=== PATIENT | male | born 1975 | race Caucasian/White ===

== ENCOUNTER → 2018-04-09 | Outpatient (CLI) | payer BC ==
--- NOTE | 2018-04-09 18:24 | US ---
EXAMINATION TYPE: US venous doppler duplex LE LT DATE OF EXAM: 04/09/2018 6:19 PM COMPARISON: NONE CLINICAL HISTORY: leg swelling pain R60.0. left leg swelling. SIDE PERFORMED: Left TECHNIQUE: The lower extremity deep venous system is examined utilizing real time linear array sonog gage with graded compression, doppler sonography and color-flow sonography. VESSELS IMAGED: External Iliac Vein (EIV) Common Femoral Vein Deep Femoral Vein Greater Saphenous Vein * Femoral Vein Popliteal Vein Small Saphenous Vein * Proximal Calf Veins (* superficial vessels) Left Leg: Negative for DVT No evidence of DVT left leg. IMPRESSION: No evidence of deep venous thrombosis in the left leg.
== END | disposition home or self-care (01) ==
LOC: RADUSMAIN 17:49
PROVIDERS: ATTEND Physician Assistant
DX: R60.0 Localized edema (principal); M79.606 Pain in leg, unspecified

== ENCOUNTER 2022-07-10 07:36 | Day surgery (SDC) | payer BC ==
[2022-07-08 15:29] VITALS: BMI 42.0
[~2022-07-10 07:36] MED LIST: HYDROmorphone 0.5 MG/0.5 ML SYRINGE IVP PRN; LACTATED RINGERS 1,000 ML IV SCH; ONDANSETRON 4 MG/2 ML VIAL IVP ONE
[2022-07-10 08:06] VITALS: TEMP 97.4
[2022-07-10] MEDS ORDERED: LACTATED RINGERS 1,000 ML IV ONE (08:13)
[2022-07-10] MEDS ORDERED: PROPOFOL 10 MG/ML 20 ML VIAL IV ONE (08:30)
--- NOTE | 2022-07-10 08:32 | P.GSHP ---
History of Present Illness H&P Date: 07/10/22 CHIEF COMPLAINT: Colon screen HISTORY OF PRESENT ILLNESS: The patient is a 46-year-old male who presents for colon screen. Lower endoscopy was offered for further evaluation and management. PAST MEDICAL HISTORY: Please see list. PAST SURGICAL HISTORY: Please see list. MEDICATIONS: Please see list. ALLERGIES: Please see list. SOCIAL HISTORY: No illicit drug use FAMILY HISTORY: No reports of Crohn disease or ulcerative colitis. REVIEW OF ORGAN SYSTEMS: CONSTITUTIONAL: No reports of fevers or chills. PHYSICAL EXAM: VITAL SIGNS: Stable GENERAL: Well-developed pleasant in no acute distress. HEENT: No scleral icterus. Extraocular movements grossly intact. Moist buccal mucosa. NECK: Supple without lymphadenopathy. CHEST: Unlabored respirations. Equal bilateral excursions. CARDIOVASCULAR: Regular rate and rhythm. Distal 2+ pulses. ABDOMEN: Soft, nontender, nondistended. MUSCULOSKELETAL: No clubbing, cyanosis, or edema. ASSESSMENT: 1. Colon screen. PLAN: 1. Recommend proceeding with a lower endoscopy Past Medical History Past Medical History: Hypertension Additional Past Medical History / Comment(s): BLOOD IN STOOL History of Any Multi-Drug Resistant Organisms: None Reported Past Surgical History: No Surgical Hx Reported Past Anesthesia/Blood Transfusion Reactions: Motion Sickness Smoking Status: Former smoker - Past Family History Mother Family Medical History: Cancer Medications and Allergies Home Medications Medication Instructions Recorded Confirmed Type Ergocalciferol [Vitamin D2 (1250 1,250 mcg PO HAMILTON 07/08/22 07/08/22 History Mcg = 33368 Iu)] Losartan [Cozaar] 50 mg PO BID 07/08/22 07/08/22 History Allergies Allergy/AdvReac Type Severity Reaction Status Date / Time Penicillins Allergy Unknown Verified 07/08/22 15:19 Childhood Surgical - Exam Vital Signs Temp Pulse Resp BP Pulse Ox 97.4 F L 72 18 142/82 99 07/10/22 08:05 07/10/22 08:05 07/10/22 08:05 07/10/22 08:05 07/10/22 08:05
--- NOTE | 2022-07-10 08:50 | P.PCN ---
Date of Procedure: 07/10/22 Description of Procedure: PREOPERATIVE DIAGNOSIS: Colonoscopy screening. POSTOPERATIVE DIAGNOSIS: Colonoscopy screening. Diverticulosis, sigmoid colon OPERATION: Colonoscopy to the cecum, ileocecal valve and appendiceal orifice. SURGEON: Maritza Whitt MD. ANESTHESIA: MAC. INDICATIONS: The patient is a 46-year-old male who presents for colonoscopy screening. Benefits and risks were described and informed consent was obtained. DESCRIPTION OF PROCEDURE: The patient had undergone Sutab prep. The patient had been brought into the operating room and laid in the left lateral decubitus position. After adequate intravenous sedation, the rectum was examined with 2% lidocaine jelly. No external hemorrhoids were encountered. The rectal tone was within normal limits. No lesions were palpated in the rectal vault. An Olympus colonoscope was advanced until the cecum, ileocecal valve and appendiceal orifice were clearly viewed. The prep was excellent. Sigmoid diverticulosis was encountered. No colonic polyps were found. No evidence of focal colitis was found. Retroflexion of the scope demonstrated grade 1 internal hemorrhoids without active bleeding or inflammation. The colon was desufflated. The patient had tolerated the procedure well. Withdrawal time was over 6 minutes. FINDINGS: Aronchick preparation quality scale 1 (1-5) Internal hemorrhoids, grade 1 No external prolapsed hemorrhoids. No arteriovenous malformations. No adenomatous polyps. No focal colitis. Sigmoid diverticulosis RECOMMENDATIONS: Lower endoscopy 2031 Plan - Discharge Summary Discharge Rx Participant: No New Discharge Prescriptions: Continue Ergocalciferol [Vitamin D2 (1250 Mcg = 25088 Iu)] 1,250 mcg PO HAMILTON Losartan [Cozaar] 50 mg PO BID Discharge Medication List Ergocalciferol [Vitamin D2 (1250 Mcg = 16252 Iu)] 1,250 mcg PO HAMILTON 07/08/22 [History] Losartan [Cozaar] 50 mg PO BID 07/08/22 [History] Follow up Appointment(s)/Referral(s): Maritza Whitt MD [STAFF PHYSICIAN] - As Needed Patient Instructions/Handouts: Diverticulosis Diet (GEN), Diverticulosis (DC), *Surgery [facility] - (Anesthesia) Endoscopy Discharge Instructions, Colonoscopy (DC) Activity/Diet/Wound Care/Special Instructions: Repeat colonoscopy in 2031 Discharge Disposition: HOME SELF-CARE
[2022-07-10 08:53] VITALS: RESP 16
[2022-07-10 09:05] VITALS: BP 119/83; PULSE 63
== END 2022-07-10 09:21 | disposition home or self-care (01) ==
LOC: ORWHC2ENDO 07:36
PROVIDERS: ATTEND Surgery Plastic and Reconstructive Surgery
DX: Z12.11 Encounter for screening for malignant neoplasm of colon (principal); K57.30 Diverticulosis of large intestine without perforation or abscess without bleeding; K64.0 First degree hemorrhoids; I10 Essential (primary) hypertension; T75.3XXA Motion sickness, initial encounter; Z79.811 Long term (current) use of aromatase inhibitors; Z87.891 Personal history of nicotine dependence; Z80.9 Family history of malignant neoplasm, unspecified; Z88.0 Allergy status to penicillin
CPT/HCPCS: 45378; J2704

== ENCOUNTER 2022-09-30 09:35 | Inpatient (IN) | payer BC ==
--- NOTE | 2022-09-30 10:12 | ED ---
Abdominal Pain HPI - General Chief Complaint: Abdominal Pain Stated Complaint: Abd pain Time Seen by Provider: 09/30/22 10:05 Source: patient, RN notes reviewed Limitations: no limitations - History of Present Illness Initial Comments: This is a 47 year old male who presents to the emergency department for progressive RLQ pain x2 days. The pain started in the center of his abdomen before moving to the right lower quadrant. He also reports associated nausea and vomiting. Denies any fevers or blood in his vomit or stool. Denies any modifying factor or history of similar symptoms in the past. He has not measured any fevers, but he has felt like he may have had one because he has been sweating a lot. Denies any sore throat, cough, dyspnea, chest pain, palpitations, diarrhea, back pain, or headaches. MD Complaint: abdominal pain Onset/Timin -: days(s) Location: RLQ - Related Data Home Medications Medication Instructions Recorded Confirmed Losartan [Cozaar] 50 mg PO BID 07/08/22 09/30/22 Allergies Allergy/AdvReac Type Severity Reaction Status Date / Time Penicillins Allergy Unknown Verified 09/30/22 11:45 Childhood Review of Systems ROS Statement: Those systems with pertinent positive or pertinent negative responses have been documented in the HPI. ROS Other: All systems not noted in ROS Statement are negative. Past Medical History Past Medical History: Hypertension Additional Past Medical History / Comment(s): BLOOD IN STOOL History of Any Multi-Drug Resistant Organisms: None Reported Past Surgical History: No Surgical Hx Reported Past Anesthesia/Blood Transfusion Reactions: Motion Sickness Past Psychological History: No Psychological Hx Reported Smoking Status: Former smoker Past Alcohol Use History: Rare Past Drug Use History: None Reported - Past Family History Mother Family Medical History: Cancer General Exam Limitations: no limitations General appearance: alert, in distress Head exam: Present: atraumatic, normocephalic, normal inspection Respiratory exam: Present: normal lung sounds bilaterally. Absent: respiratory distress, wheezes, rales, rhonchi, stridor Cardiovascular Exam: Present: regular rate, normal rhythm, normal heart sounds. Absent: systolic murmur, diastolic murmur, rubs, gallop, clicks GI/Abdominal exam: Present: soft, tenderness (RLQ), normal bowel sounds. Absent: distended Neurological exam: Present: alert, oriented X3, CN II-XII intact Psychiatric exam: Present: normal affect, normal mood Skin exam: Present: warm, dry, intact, normal color. Absent: rash Course Vital Signs 09/30/22 09:58 Temperature 98.4 F Pulse Rate 98 Respiratory 18 Rate Blood Pressure 172/103 O2 Sat by Pulse 98 Oximetry Medical Decision Making - Medical Decision Making This is a 47 year old male who presents to the emergency department for RLQ pain. Was pt. sent in by a medical professional or institution? @ -No Did you speak to anyone other than the patient for history? @ -His Did you review nursing and triage notes? @ -Agree, accurate with regards to the patient's symptoms. Were old charts reviewed? @ -No Differential Diagnosis? @ -Differential Abdominal Pain Men: Appendicitis, cholecystitis, diverticulosis, ischemic bowel, pancreatitis, hepatitis, UTI, gastroenteritis, AAA, incarcerated hernia, bowel obstruction, constipation, inflammatory bowel, hepatitis, peptic ulcer disease, splenic infarction, perforated viscus, testicular torsion, this is not meant to be an all-inclusive list CT interpreted by me (1pt min.)? @ -Computed tomography scan of the abdomen and pelvis reveals a dilated appendix with associated wall thickening. What testing was considered but not performed? (CT, X-rays, U/S, labs)? Why? @ -None What meds were considered but not given? Why? @ -None Did you discuss the management of the patient with other professionals? @ -Dr. Styles, general surgery for acute appendicitis. Surgical intervention planned. Did you reconcile home meds? @ -Yes Was smoking cessation discussed for >3mins.? @ -No Was critical care preformed (if so, how long)? @ -No Were there social determinants of health that impacted care today? How? (Homelessness, low income, unemployed, alcoholism, drug addiction, transportation, low edu. Level, literacy, decrease access to med. care, [facility], rehab)? @ -No Was there de-escalation of care discussed even if they declined? (Discuss DNR or withdrawal of care, Hospice)? @ -No What co-morbidities impacted this encounter? (DM, HTN, Smoking, COPD, CAD, Cancer, CVA, Hep., AIDS, mental health diagnosis, sleep apnea, morbid obesity)? @ -HTN Was patient admitted / discharged? @ -Patient was given a bolus of IV fluids, Zofran, Toradol, and morphine, which he states improved his symptoms. Lab work reveals leukocytosis and elevated la ctic acid. Computed tomography scan consistent with an acute appendicitis. Case discussed with Dr. Styles, general surgery, who will plan for surgical intervention. Patient started on maintenance fluids, IV Levaquin and Flagyl will blood cultures obtained prior. Dr. Mayorga consulted for medical management. Drug Therapy requiring intensive monitoring for toxicity (Heparin, Nitro, Insulin, Cardizem)? @ -None Were any procedures done? @ -None Diagnosis/symptom? @ -Appendicitis Acute, or Chronic, or Acute on Chronic? @ -Acute Uncomplicated (without systemic symptoms) or Complicated (systemic symptoms)? @ -Complicated Side effects of treatment? @ -No adverse effects to medication administered at this time. Side effects from surgical intervention are always a possibility, discussion of risks will be deferred to the surgical team. Exacerbation, Progression, or Severe Exacerbation] @ -Not applicable Poses a threat to life or bodily function? @ -Yes, the infection can become a life-threatening problem if it goes untreated. This is also impacting his ability to function in terms of the pain. This case was discussed in detail with the attending ED physician. Presentation, findings, and treatment plan discussed in detail as well. - Lab Data Result diagrams: 09/30/22 10:43 09/30/22 12:10 Lab Results 09/30/22 09/30/22 09/30/22 Range/Units 10:43 10:43 11:12 WBC 17.4 H (3.8-10.6) k/uL RBC 5.81 (4.30-5.90) m/uL Hgb 18.1 H (13.0-17.5) gm/dL Hct 53.3 H (39.0-53.0) % MCV 91.7 (80.0-100.0) fL MCH 31.2 (25.0-35.0) pg MCHC 34.0 (31.0-37.0) g/dL RDW 13.2 (11.5-15.5) % Plt Count 302 (150-450) k/uL MPV 9.2 Neutrophils % 89 % Lymphocytes % 7 % Monocytes % 3 % Eosinophils % 1 % Basophils % 0 % Neutrophils # 15.4 H (1.3-7.7) k/uL Lymphocytes # 1.2 (1.0-4.8) k/uL Monocytes # 0.5 (0-1.0) k/uL Eosinophils # 0.1 (0-0.7) k/uL Basophils # 0.0 (0-0.2) k/uL Sodium (137-145) mmol/L Potassium (3.5-5.1) mmol/L Chloride (98-107) mmol/L Carbon Dioxide (22-30) mmol/L Anion Gap mmol/L BUN (9-20) mg/dL Creatinine (0.66-1.25) mg/dL Est GFR (CKD-EPI)AfAm (>60 ml/min/1.73 sqM) Est GFR (CKD-EPI)NonAf (>60 ml/min/1.73 sqM) Glucose (74-99) mg/dL Lactic Ac Sepsis Rflx Y Plasma Lactic Acid Trevor 3.2 H* (0.7-2.0) mmol/L Calcium (8.4-10.2) mg/dL Total Bilirubin (0.2-1.3) mg/dL AST (17-59) U/L ALT (4-49) U/L Alkaline Phosphatase (38-126) U/L Total Protein (6.3-8.2) g/dL Albumin (3.5-5.0) g/dL Amylase (30-110) U/L Lipase (23-300) U/L 09/30/22 Range/Units 12:10 WBC (3.8-10.6) k/uL RBC (4.30-5.90) m/uL Hgb (13.0-17.5) gm/dL Hct (39.0-53.0) % MCV (80.0-100.0) fL MCH (25.0-35.0) pg MCHC (31.0-37.0) g/dL RDW (11.5-15.5) % Plt Count (150-450) k/uL MPV Neutrophils % % Lymphocytes % % Monocytes % % Eosinophils % % Basophils % % Neutrophils # (1.3-7.7) k/uL Lymphocytes # (1.0-4.8) k/uL Monocytes # (0-1.0) k/uL Eosinophils # (0-0.7) k/uL Basophils # (0-0.2) k/uL Sodium 138 (137-145) mmol/L Potassium 4.4 (3.5-5.1) mmol/L Chloride 101 (98-107) mmol/L Carbon Dioxide 25 (22-30) mmol/L Anion Gap 12 mmol/L BUN 20 (9-20) mg/dL Creatinine 1.11 (0.66-1.25) mg/dL Est GFR (CKD-EPI)AfAm >90 (>60 ml/min/1.73 sqM) Est GFR (CKD-EPI)NonAf 78 (>60 ml/min/1.73 sqM) Glucose 236 H (74-99) mg/dL Lactic Ac Sepsis Rflx Plasma Lactic Acid Trevor (0.7-2.0) mmol/L Calcium 9.5 (8.4-10.2) mg/dL Total Bilirubin 1.5 H (0.2-1.3) mg/dL AST 29 (17-59) U/L ALT 33 (4-49) U/L Alkaline Phosphatase 88 (38-126) U/L Total Protein 7.9 (6.3-8.2) g/dL Albumin 4.7 (3.5-5.0) g/dL Amylase 69 (30-110) U/L Lipase 206 (23-300) U/L - Radiology Data Radiology results: report reviewed, image reviewed Disposition Clinical Impression: Acute appendicitis Disposition: ADMITTED IP TO THIS HOSP
[2022-09-30 11:02] LABS: Basophils % (A) 0 %; Eosinophils # (A) 0.1 k/uL (0-0.7); Eosinophils % (A) 1 %; HCT 53.3 % (39.0-53.0); HGB 18.1 gm/dL (13.0-17.5); Lymphocytes # (A) 1.2 k/uL (1.0-4.8); Lymphocytes % (A) 7 %; MCH 31.2 pg (25.0-35.0); MCV 91.7 fL (80.0-100.0); Mean Platelet Volume 9.2; Monocytes # (A) 0.5 k/uL (0-1.0); Monocytes % (A) 3 %; Neutrophils # (A) 15.4 k/uL (1.3-7.7); Neutrophils % (A) 89 %; Platelet Count 302 k/uL (150-450); RBC 5.81 m/uL (4.30-5.90); RDW 13.2 % (11.5-15.5); WBC 17.4 k/uL (3.8-10.6)
[2022-09-30] MEDS ORDERED: ONDANSETRON 4 MG/2 ML VIAL IVP STA (11:02)
[2022-09-30] MEDS ORDERED: KETOROLAC 15 MG/ML 1 ML VIAL IVP STA (11:02)
[2022-09-30] MEDS ORDERED: MORPHINE SULFATE 2 MG/ML SYRINGE IVP STA (11:02)
[2022-09-30] MEDS ORDERED: SODIUM CHLORIDE 0.9% 1,000 ML IV STA (11:02)
[2022-09-30] MEDS ORDERED: LEVOFLOXACIN 750MG-D5W PMX 750 MG in DEXTROSE/WATER 1 150ML.BAG IVPB STA (12:06)
[2022-09-30] MEDS ORDERED: metroNIDAZOLE-NS PMX 500 MG in SALINE 1 100ML.BAG IVPB STA (12:06)
--- NOTE | 2022-09-30 12:08 | CT ---
EXAMINATION TYPE: CT abdomen pelvis w con DATE OF EXAM: 09/30/2022 COMPARISON: HISTORY: lower abd pain CT DLP: 2646.7 mGycm Automated exposure control for dose reduction was used. CONTRAST: CT scan of the abdomen pelvis is performed with IV Contrast, patient injected with 100 mL of Isovue 3 00. FINDINGS- LUNG BASES- 5 mm subpleural nodule left lower lobe. Paraseptal emphysema. LIVER/GB- No gross abnormality is appreciated. PANCREAS- No gross abnormality is seen. SPLEEN- No gross abnormality is seen. ADRENALS- No gross abnormality is seen. KIDNEYS/BLADDER- no hydronephrosis nephrolithiasis or renal mass. BOWEL- adnexa demonstrates periappendiceal inflammatory change with thickened wall. Appendix measure s 1.2 cm. Findings compatible with acute appendicitis. Suspect there may be a small appendicolith at the origin of the appendix. Changes of diverticulosis are seen. Low density seen in the epigastric region most likely is artifact ual LYMPH NODES- No greater than 1cm abdominal or pelvic lymph nodes are appreciated. OSSEOUS STRUCTURES- No significant abnormality is seen. OTHER- aorta of normal caliber. Trace amount of free fluid seen in the right lower quadrant and pelv is with no definable abscess. Incidental note made of a retroaortic left renal vein. IMPRESSION- 1. Acute appendicitis with no definite abscess.
[2022-09-30] MEDS ORDERED: NALOXONE 0.4 MG/ML 1 ML VIAL IV PRN (12:11)
[2022-09-30] MEDS ORDERED: ONDANSETRON 4 MG/2 ML VIAL IVP PRN (12:11)
[2022-09-30] MEDS ORDERED: ACETAMINOPHEN TAB 325 MG TAB PO PRN (12:13)
[2022-09-30 12:39] LABS: ALT 33 U/L (4-49); AST 29 U/L (17-59); African American GFR (CKD) >90 (>60 ml/min/1.73 sqM); Albumin 4.7 g/dL (3.5-5.0); Alkaline Phosphatase 88 U/L (38-126); Amylase 69 U/L (30-110); Anion Gap 12 mmol/L; Blood Urea Nitrogen 20 mg/dL (9-20); Calcium 9.5 mg/dL (8.4-10.2); Carbon Dioxide 25 mmol/L (22-30); Chloride 101 mmol/L (98-107); Glucose 236 mg/dL (74-99); Lipase 206 U/L (23-300); Non-African American GFR(CKD) 78 (>60 ml/min/1.73 sqM); Potassium 4.4 mmol/L (3.5-5.1); Sodium 138 mmol/L (137-145); Total Bilirubin 1.5 mg/dL (0.2-1.3); Total Protein 7.9 g/dL (6.3-8.2)
--- NOTE | 2022-09-30 14:00 | P.GSHP ---
History of Present Illness H&P Date: 09/30/22 CHIEF COMPLAINT: Abdominal pain HISTORY OF PRESENT ILLNESS: This is a 47-year-old male who presented with right lower quadrant abdominal pain 2 days. Patient reports that his pain started in the mid abdomen and has moved down to the right lower quadrant. He has been having nausea. Also experiencing chills and sweats. He has not had a bowel movement since Friday. Computed tomography scan had shown evidence of acute appendicitis. Denies any prior abdominal surgical history. BP was elevated on admission. PAST MEDICAL HISTORY: Hypertension PAST SURGICAL HISTORY: See below MEDICATIONS: See below ALLERGIES: See below SOCIAL HISTORY: No illicit drug use. REVIEW OF SYSTEMS: CONSTITUTIONAL: Denies fever or chills. HEENT: Denies blurred vision, vision changes, or eye pain. Denies hemoptysis CARDIOVASCULAR: Denies chest pain or pressure. RESPIRATORY: No shortness of breath. GASTROINTESTINAL: See HPI for pertinent findings HEMATOLOGIC: Denies bleeding disorders. GENITOURINARY: Denies any blood in urine or increased urinary frequency. SKIN: Denies pruitis. Denies rash. PHYSICAL EXAM: VITAL SIGNS: Reviewed GENERAL: Well-developed in no acute distress. HEENT: No sclera icterus. Extraocular movements grossly intact. Moist buccal mucosa. Head is atraumatic, normocephalic. No nasal drainage. ABDOMEN: Soft. Nondistended. Tenderness right lower quadrant NEUROLOGIC: Alert and oriented. Cranial nerves II through XII grossly intact. LABORATORY DATA: WBC is 17.4 Hgb 18.1 platelets 302 Sodium is 138 potassium 4.4 creatinine 1.11 Glucose 236 Lactic acid 3.2 repeat pending total bili 1.5 AST 29 ALT 33 alk phos 88 Lipase 206 IMAGING: Computed tomography scan abdomen and pelvis acute appendicitis with no definite abscess ASSESSMENT: 1. Acute appendicitis 2. Leukocytosis 3. Elevated lactic acid level PLAN: -Patient scheduled for laparoscopic appendectomy today -Keep patient nothing by mouth -Continue antibiotics -Continue IV fluids -Continue pain medication and antiemetics as needed Physician Advertising Consultant note has been reviewed by physician. Signing provider agrees with the documented findings, assessment, and plan of care. Past Medical History Past Medical History: Hypertension Additional Past Medical History / Comment(s): BLOOD IN STOOL History of Any Multi-Drug Resistant Organisms: None Reported Past Surgical History: No Surgical Hx Reported Past Anesthesia/Blood Transfusion Reactions: Motion Sickness Past Psychological History: No Psychological Hx Reported Smoking Status: Former smoker Past Alcohol Use History: Rare Past Drug Use History: None Reported - Past Family History Mother Family Medical History: Cancer Medications and Allergies Home Medications Medication Instructions Recorded Confirmed Type Losartan [Cozaar] 50 mg PO BID 07/08/22 09/30/22 History Allergies Allergy/AdvReac Type Severity Reaction Status Date / Time Penicillins Allergy Unknown Verified 09/30/22 11:45 Childhood Surgical - Exam Vital Signs Temp Pulse Resp BP Pulse Ox 98.4 F 98 18 172/103 98 09/30/22 09:58 09/30/22 09:58 09/30/22 09:58 09/30/22 09:58 09/30/22 09:58 Results - Labs 09/30/22 10:43 09/30/22 12:10 Abnormal Lab Results - Last 24 Hours (Table) 09/30/22 09/30/22 09/30/22 Range/Units 10:43 10:43 12:10 WBC 17.4 H (3.8-10.6) k/uL Hgb 18.1 H (13.0-17.5) gm/dL Hct 53.3 H (39.0-53.0) % Neutrophils # 15.4 H (1.3-7.7) k/uL Glucose 236 H (74-99) mg/dL Plasma Lactic Acid Trevor 3.2 H* (0.7-2.0) mmol/L Total Bilirubin 1.5 H (0.2-1.3) mg/dL Diabetes panel 09/30/22 Range/Units 12:10 Sodium 138 (137-145) mmol/L Potassium 4.4 (3.5-5.1) mmol/L Chloride 101 (98-107) mmol/L Carbon Dioxide 25 (22-30) mmol/L BUN 20 (9-20) mg/dL Creatinine 1.11 (0.66-1.25) mg/dL Glucose 236 H (74-99) mg/dL Calcium 9.5 (8.4-10.2) mg/dL AST 29 (17-59) U/L ALT 33 (4-49) U/L Alkaline Phosphatase 88 (38-126) U/L Total Protein 7.9 (6.3-8.2) g/dL Albumin 4.7 (3.5-5.0) g/dL Calcium panel 09/30/22 Range/Units 12:10 Calcium 9.5 (8.4-10.2) mg/dL Albumin 4.7 (3.5-5.0) g/dL Pituitary panel 09/30/22 Range/Units 12:10 Sodium 138 (137-145) mmol/L Potassium 4.4 (3.5-5.1) mmol/L Chloride 101 (98-107) mmol/L Carbon Dioxide 25 (22-30) mmol/L BUN 20 (9-20) mg/dL Creatinine 1.11 (0.66-1.25) mg/dL Glucose 236 H (74-99) mg/dL Calcium 9.5 (8.4-10.2) mg/dL Adrenal panel 09/30/22 Range/Units 12:10 Sodium 138 (137-145) mmol/L Potassium 4.4 (3.5-5.1) mmol/L Chloride 101 (98-107) mmol/L Carbon Dioxide 25 (22-30) mmol/L BUN 20 (9-20) mg/dL Creatinine 1.11 (0.66-1.25) mg/dL Glucose 236 H (74-99) mg/dL Calcium 9.5 (8.4-10.2) mg/dL Total Bilirubin 1.5 H (0.2-1.3) mg/dL AST 29 (17-59) U/L ALT 33 (4-49) U/L Alkaline Phosphatase 88 (38-126) U/L Total Protein 7.9 (6.3-8.2) g/dL Albumin 4.7 (3.5-5.0) g/dL
[2022-09-30] MEDS ORDERED: BUPIVACAIN-EPI 0.25%-1:200,000 30 ML VIAL SQ ONE ×3 (14:03→15:22)
[2022-09-30] MEDS: MORPHINE SULFATE 4 MG/ML SYRINGE IVP PRN ×3 (14:03→23:53)
[2022-09-30] MEDS ORDERED: IV FLUID CONTINUATION 1,000 ML IV ONE (14:20)
[2022-09-30] MEDS ORDERED: HEPARIN SODIUM,PORCINE/PF 5,000 UNIT/0.5 ML SYRINGE SQ ONE (14:53)
[2022-09-30] MEDS ORDERED: GLYCOPYRROLATE 0.2 MG/ML 2 ML VIAL ONE (14:53)
[2022-09-30] MEDS ORDERED: fentaNYL (PF) 50 MCG/ML 2 ML AMP ONE (14:53)
[2022-09-30] MEDS ORDERED: PHENYLEPHRINE-0.9% NACL SYG 1,000 MCG/10 ML SYRINGE ONE (14:53)
[2022-09-30] MEDS ORDERED: PROPOFOL 10 MG/ML 20 ML VIAL IV ONE (14:53)
[2022-09-30] MEDS ORDERED: NEOSTIGMINE 1 MG/ML 10 ML VIAL ONE (14:53)
[2022-09-30] MEDS ORDERED: KETAMINE 10 MG/ML 20 ML VIAL ONE (14:53)
[2022-09-30] MEDS ORDERED: LIDOCAINE 2% INJ 20 MG/ML (2 ML VIAL) ONE (14:53)
[2022-09-30] MEDS ORDERED: ePHEDrine 50 MG/ML 1 ML VIAL ONE (14:53)
[2022-09-30] MEDS ORDERED: MIDAZOLAM 2 MG/2 ML VIAL ONE (14:53)
[2022-09-30] MEDS ORDERED: SUCCINYLCHOLINE CHLORIDE 200 MG/10 ML VIAL IV ONE (14:53)
[2022-09-30] MEDS ORDERED: WATER FOR INJECTION, STERILE 10 ML VIAL IV ONE (14:53)
[2022-09-30] MEDS ORDERED: ROCURONIUM 10 MG/ML (5 ML VIAL) IV ONE (14:53)
[2022-09-30] MEDS ORDERED: SODIUM CHLORIDE 0.9% 50 ML with ceFAZolin 2,000 MG IV ONE ×2 (14:57)
[2022-09-30] MEDS ORDERED: HEPARIN SODIUM,PORCINE 5,000 UNIT/ML 1 ML VIAL SQ ONE (14:59)
[2022-09-30] MEDS ORDERED: LACTATED RINGERS 1,000 ML IV ONE ×2 (15:27)
--- NOTE | 2022-09-30 15:53 | P.OP ---
Date of Procedure: 09/30/22 Preoperative Diagnosis: Acute appendicitis Postoperative Diagnosis: Acute appendicitis with microperforation Procedure(s) Performed: Laparoscopic appendectomy Anesthesia: SHINE Surgeon: Richard Styles Estimated Blood Loss (ml): 10 Pathology: other (Appendix) Condition: stable Disposition: PACU Description of Procedure: The patient's placed on the operating table in the supine position. The patient received general anesthesia. The abdomen was prepped and draped in the usual sterile fashion. The skin was anesthetized 1% local Xylocaine at the trocar sites. Using an 11 blade the skin was incised at the umbilicus. The umbilicus was grasped with a [place] clamp and then a Veress needle was placed into the peritoneal cavity. Position of the Veress needle was confirmed with positive drop test. After adequate insufflation a 5 mm trocar was placed into the peritoneal cavity. The abdomen was further insufflated. And then the laparoscope was placed in the peritoneal cavity. Next a 5 mm trocar was placed in the midline suprapubic position. And then a 10 mm trocar was placed in the midline epigastric position. The patient was rotated with the right side up and in Trendelenburg. The appendix was visualized. The appendix appeared to be inflamed. The appendix was grasped and then using the Harmonic scissors the mesoappendix was divided. A PDS Endoloop was then placed around the base of the appendix. And then the appendix was divided using Harmonic scissors. The appendix was placed into an Endo Catch and brought out through the 10 mm trocar site. The abdomen was irrigated. There is no bleeding seen. The trochars withdrawn. The skin was closed interrupted 3-0 Monocryl suture. Dermabond dressing was applied. Patient was sent to recovery room in stable condition.
[2022-09-30] MEDS ORDERED: HYDROmorphone 0.5 MG/0.5 ML SYRINGE IVP ONE (16:11)
[2022-09-30] MEDS ORDERED: SODIUM CHLORIDE 0.9% 1,000 ML IV ONE (16:25)
[2022-09-30] MEDS: SODIUM CHLORIDE 0.9% 1,000 ML IV SCH ×2 (18:09→21:09)
[2022-09-30] MEDS: LOSARTAN 50 MG TAB PO SCH (20:13)
[2022-10-01] MEDS: SODIUM CHLORIDE 0.9% 1,000 ML IV SCH ×5 (04:46→23:08)
[2022-10-01] MEDS: MORPHINE SULFATE 2 MG/ML SYRINGE IVP PRN ×2 (04:55→23:07)
[2022-10-01] MEDS: LOSARTAN 50 MG TAB PO SCH ×2 (08:00→20:15)
[2022-10-01] MEDS: HYDROcodone/APAP 5-325MG 1 EACH TAB PO PRN ×3 (08:35→20:14)
[2022-10-01] MEDS: metroNIDAZOLE-NS PMX 500 MG in SALINE 1 100ML.BAG IVPB SCH ×3 (08:35→23:07)
[2022-10-01 08:56] LABS: Basophils % (A) 0 %; Eosinophils % (A) 0 %; Lymphocytes # (A) 1.1 k/uL (1.0-4.8); Lymphocytes % (A) 7 %; MCH 30.8 pg (25.0-35.0); MCHC 33.4 g/dL (31.0-37.0); MCV 92.1 fL (80.0-100.0); Monocytes # (A) 0.7 k/uL (0-1.0); Monocytes % (A) 4 %; Neutrophils # (A) 14.9 k/uL (1.3-7.7); Neutrophils % (A) 88 %; Platelet Count 219 k/uL (150-450); RBC 4.67 m/uL (4.30-5.90); RDW 13.5 % (11.5-15.5); WBC 16.9 k/uL (3.8-10.6)
[2022-10-01 09:07] LABS: HGB 14.4 gm/dL (13.0-17.5)
[2022-10-01 09:08] LABS: African American GFR (CKD) >90 (>60 ml/min/1.73 sqM); Anion Gap 4 mmol/L; Blood Urea Nitrogen 20 mg/dL (9-20); Calcium 8.3 mg/dL (8.4-10.2); Carbon Dioxide 24 mmol/L (22-30); Chloride 107 mmol/L (98-107); Glucose 118 mg/dL (74-99); Non-African American GFR(CKD) >90 (>60 ml/min/1.73 sqM); Sodium 135 mmol/L (137-145)
[2022-10-01] MEDS: LEVOFLOXACIN 500MG-D5W PMX 500 MG in DEXTROSE/WATER 1 100ML.BAG IVPB SCH (10:26)
--- NOTE | 2022-10-01 12:48 | P.PN ---
Subjective Progress Note Date: 10/01/22 CHIEF COMPLAINT: Acute appendicitis with microperforation HISTORY OF PRESENT ILLNESS: Patient is postop day #1 status post laparoscopic appendectomy. He reports that his pain is controlled. He denies any nausea or vomiting. He is afebrile. Mildly tachycardic. Patient denies any bowel movement or flatus. WBC is slightly down from 17.4-16.9 Hgb 14.4 platelets 219 Na 135 potassium is 4 creatinine 0.9 KRISTEN drain 50 mL serosanguineous output Patient seen and examined with Dr. shoemaker PHYSICAL EXAM: VITAL SIGNS: Reviewed. GENERAL: Well-developed in no acute distress. HEENT: No sclera icterus. Extraocular movements grossly intact. Moist buccal mucosa. Head is atraumatic, normocephalic. ABDOMEN: Soft. Nondistended. Incision is clean dry and intact. KRISTEN drain with cirrhosis and output. NEUROLOGIC: Alert and oriented. Cranial nerves II through XII grossly intact. ASSESSMENT: 1. Acute appendicitis with microperforation PLAN: -Continue clear liquid diet -Continue antibiotics -Continue IV fluids -Continue pain management -Continue supportive care -Patient can shower today -Anticipate discharge possibly tomorrow -Encouraged patient to ambulate -Encouraged patient to use incentive spirometer -DVT prophylaxis subcu heparin Physician Resource Specialist Teacher note has been reviewed by physician. Signing provider agrees with the documented findings, assessment, and plan of care. Objective - Vital Signs Vital signs: Vital Signs Temp 98.5 F 10/01/22 07:00 Pulse 92 10/01/22 07:00 Resp 16 10/01/22 07:00 BP 111/77 10/01/22 07:00 Pulse Ox 93 L 10/01/22 07:00 FiO2 Intake & Output 09/30/22 10/01/22 10/01/22 18:59 06:59 18:59 Intake Total 2750 Output Total 10 700 Balance 2740 -700 Weight 134.263 kg Intake: IV 2550 Oral 200 Output: Drainage 50 Lower Abdomen 50 Urine 650 Estimated Blood Loss 10 Other: # Voids 0 - Labs CBC & Chem 7: 10/01/22 08:15 10/01/22 08:15 Labs: Abnormal Lab Results - Last 24 Hours (Table) 09/30/22 09/30/22 09/30/22 Range/Units 12:10 13:37 17:12 WBC (3.8-10.6) k/uL Neutrophils # (1.3-7.7) k/uL Sodium (137-145) mmol/L Glucose 236 H (74-99) mg/dL Plasma Lactic Acid Trevor 2.3 H* 3.5 H* (0.7-2.0) mmol/L Calcium (8.4-10.2) mg/dL Total Bilirubin 1.5 H (0.2-1.3) mg/dL 10/01/22 10/01/22 Range/Units 08:15 08:15 WBC 16.9 H (3.8-10.6) k/uL Neutrophils # 14.9 H (1.3-7.7) k/uL Sodium 135 L (137-145) mmol/L Glucose 118 H (74-99) mg/dL Plasma Lactic Acid Trevor (0.7-2.0) mmol/L Calcium 8.3 L (8.4-10.2) mg/dL Total Bilirubin (0.2-1.3) mg/dL
[2022-10-01] MEDS: MORPHINE SULFATE 4 MG/ML SYRINGE IVP PRN ×2 (13:17→17:36)
[2022-10-01] MEDS: PANTOPRAZOLE 40 MG/10 ML VIAL IVP SCH (13:20)
[2022-10-01] MEDS: HEPARIN SODIUM,PORCINE/PF 5,000 UNIT/0.5 ML SYRINGE SQ SCH ×2 (15:57→20:15)
--- NOTE | 2022-10-01 18:01 | P.CONS ---
History of Present Illness - Reason for Consult Consult date: 10/01/22 Medical management hypertension Requesting physician: Richard Styles - Chief Complaint Right lower quadrant abdominal pain - History of Present Illness As a 47-year-old gentleman with past medical history of former nicotine dependence, hypertension, obesity presented to the ER with right lower quadrant abdominal pain since Friday night, accompanied by nausea, chills, sweats. Last bowel movement Friday. CT of abdomen and pelvis reported acute appendicitis with no definite abscess. Underwent laparoscopic appendectomy reporting microperforation in addition to acute appendicitis. Tolerated procedure well. Maintained on IV fluid hydration, IV Flagyl. Denies nausea, vomiting. Denies flatus. Pain controlled. Afebrile, T-max 101.4. WBC trending down, 16.9. Preliminary blood cultures reporting no growth after 24 hours. Hemoglobin 14.4, platelets 219, sodium 135, potassium 4, renal function stable. Blood sugars controlled. Denies chest pain, palpitations or shortness of breath. Maintaining O2 sats in the 90s on room air. Review of Systems ROS Statement: Those systems with pertinent positive or pertinent negative responses have been documented in the HPI. ROS Other: All systems not noted in ROS Statement are negative. Past Medical History Past Medical History: Hypertension Additional Past Medical History / Comment(s): BLOOD IN STOOL History of Any Multi-Drug Resistant Organisms: None Reported Past Surgical History: No Surgical Hx Reported Past Anesthesia/Blood Transfusion Reactions: Motion Sickness Past Psychological History: No Psychological Hx Reported Smoking Status: Former smoker Past Alcohol Use History: Rare Additional Past Alcohol Use History / Comment(s): QUIT SMOKING ABOUT 10 YEARS AGO Past Drug Use History: None Reported - Past Family History Mother Family Medical History: Cancer Medications and Allergies Home Medications Medication Instructions Recorded Confirmed Type Losartan [Cozaar] 50 mg PO BID 07/08/22 09/30/22 History Allergies Allergy/AdvReac Type Severity Reaction Status Date / Time Penicillins Allergy Unknown Verified 09/30/22 11:45 Childhood Physical Exam Vitals: Vital Signs Temp Pulse Pulse Resp BP BP Pulse Ox 10/01/22 07:00 98.5 F 92 16 111/77 93 L 10/01/22 01:52 98.8 F 104 H 20 100/58 93 L 09/30/22 20:00 99.0 F 103 H 17 111/73 91 L 09/30/22 16:40 97 16 119/68 96 09/30/22 16:25 98 16 121/56 94 L 09/30/22 16:10 102 H 16 113/62 98 09/30/22 15:58 100.8 F H 103 H 14 122/66 97 09/30/22 15:00 98.6 F 99 17 126/77 97 09/30/22 14:25 101.4 F H 101 H 18 137/71 97 09/30/22 14:10 99 16 113/62 Intake and Output 09/30/22 10/01/22 10/01/22 22:59 06:59 14:59 Intake Total 1800 Output Total 10 700 Balance 1790 -700 Intake: IV 1600 Oral 200 Output: Drainage 50 Lower Abdomen 50 Urine 650 Estimated Blood Loss 10 Other: # Voids 0 Weight 134.263 kg PHYSICAL EXAM: VITAL SIGNS: As above GENERAL: Alert and oriented 3, Sitting up in bed, no acute distress HEENT: Conjunctivae normal. eyes normal. Oral mucosa moist NECK: Supple, No JVD. CARDIOVASCULAR: S1, S2 regular. No murmur RESPIRATION: Unlabored ,Breath sounds diminished in the bases. No rhonchi or crackles. No bronchial breathing. ABDOMEN: Soft, nondistended, status post surgery, dressing clean dry and intact No guarding. no masses palpable. LEGS: No edema. no swelling NERVOUS SYSTEM: Cranial N 2-12 grossly normal. No focal deficits. Strength and sensation grossly intact. Skin: Warm and dry, no rash Results CBC & Chem 7: 10/01/22 08:15 10/01/22 08:15 Labs: Abnormal Lab Results - Last 24 Hours (Table) 09/30/22 09/30/22 09/30/22 Range/Units 12:10 13:37 17:12 WBC (3.8-10.6) k/uL Neutrophils # (1.3-7.7) k/uL Sodium (137-145) mmol/L Glucose 236 H (74-99) mg/dL Plasma Lactic Acid Trevor 2.3 H* 3.5 H* (0.7-2.0) mmol/L Calcium (8.4-10.2) mg/dL Total Bilirubin 1.5 H (0.2-1.3) mg/dL 10/01/22 10/01/22 Range/Units 08:15 08:15 WBC 16.9 H (3.8-10.6) k/uL Neutrophils # 14.9 H (1.3-7.7) k/uL Sodium 135 L (137-145) mmol/L Glucose 118 H (74-99) mg/dL Plasma Lactic Acid Trevor (0.7-2.0) mmol/L Calcium 8.3 L (8.4-10.2) mg/dL Total Bilirubin (0.2-1.3) mg/dL Assessment and Plan Assessment: Acute appendicitis with microperforation Hypertension Former nicotine dependence Morbid obesity, BMI 40.1 Plan: Continue on current medication regime ,monitoring and symptomatic treatment. Aggressive pulmonary toileting with incentive spirometer ordered. Protonix ordered for GI prophylaxis. Maintain IV fluid hydration, IV Flagyl. Currently NPO, diet advancement as per primary. Pain management as per primary. Increase activity as tolerated. Thank you for the consult. The impression and plan of care has been dictated as directed. : I performed a history and examination of this patient, discussed the same with the dictator. I agree with the dictator's note ,documented as a scribe. Any additional findings or plans will be noted.
[2022-10-01 22:21] LABS: Appearance,Urine Clear (Clear); Bilirubin,Urine Negative (Negative); Blood,Urine Negative (Negative); Color,Urine Yellow; Glucose,Urine (UA) Negative (Negative); Ketones,Urine Negative (Negative); Leukocyte Esterase,Urine Negative (Negative); Nitrite,Urine Negative (Negative); PH, Urine 5.5 (5.0-8.0); Protein,Urine Trace (Negative); Specific Gravity,Urine 1.016 (1.001-1.035); Urobilinogen,Urine <2.0 mg/dL (<2.0)
[2022-10-02] MEDS: HYDROcodone/APAP 5-325MG 1 EACH TAB PO PRN ×3 (02:22→12:42)
[2022-10-02] MEDS: PANTOPRAZOLE 40 MG/10 ML VIAL IVP SCH (07:45)
[2022-10-02] MEDS: LOSARTAN 50 MG TAB PO SCH ×2 (07:45→21:09)
[2022-10-02] MEDS: HEPARIN SODIUM,PORCINE/PF 5,000 UNIT/0.5 ML SYRINGE SQ SCH ×2 (07:45→21:10)
[2022-10-02] MEDS: metroNIDAZOLE-NS PMX 500 MG in SALINE 1 100ML.BAG IVPB SCH ×2 (07:45→17:13)
[2022-10-02] MEDS: SODIUM CHLORIDE 0.9% 1,000 ML IV SCH ×2 (07:46→20:09)
[2022-10-02] MEDS: LEVOFLOXACIN 500MG-D5W PMX 500 MG in DEXTROSE/WATER 1 100ML.BAG IVPB SCH (09:02)
[2022-10-02] MEDS: MORPHINE SULFATE 2 MG/ML SYRINGE IVP PRN (09:10)
[2022-10-02 09:39] LABS: Basophils # (A) 0.03 X 10*3/uL (0.00-0.10); Basophils % (A) 0.2 %; Eosinophils # (A) 0 X 10*3/uL (0.04-0.35); Eosinophils % (A) 0 %; HGB 14.2 g/dL (13.0-17.0); Immature Grans, Automated 0.4 %; Lymphocytes # (A) 0.62 X 10*3/uL (0.90-5.00); Lymphocytes % (A) 3.6 %; MCH 29.6 pg (27.0-32.0); MCHC 32.3 g/dL (32.0-37.0); MCV 91.9 fL (80.0-97.0); Mean Platelet Volume 11.8 fL (9.5-12.2); Monocytes # (A) 0.79 X 10*3/uL (0.20-1.00); Monocytes % (A) 4.6 %; NRBC Per 100 WBC 0 /100 WBCS (0.0-0.0); Neutrophils # (A) 15.57 X 10*3/uL (1.80-7.70); Neutrophils % (A) 91.2 %; Platelet Count 228 X 10*3/uL (140-440); RBC 4.79 X 10*6/uL (4.40-5.60); RDW 14.1 % (11.5-14.5); WBC 17.08 X 10*3/uL (4.50-10.00)
[2022-10-02 10:53] LABS: BUN/Creat Ratio 14.39 Ratio (12.00-20.00); Blood Urea Nitrogen 13.3 mg/dL (9.0-27.0); Calcium 9.1 mg/dL (8.7-10.3); Carbon Dioxide 19.7 mmol/L (20.0-27.5); Non-African American GFR(CKD) 97.5 (60.0-200.0); Potassium 4.1 mmol/L (3.5-5.5)
[2022-10-02] MEDS ORDERED: SODIUM CHLORIDE 0.9% 1,000 ML IV ONE (11:50)
--- NOTE | 2022-10-02 13:55 | P.PN ---
Subjective Progress Note Date: 10/02/22 - History of Present Illness As a 47-year-old gentleman with past medical history of former nicotine dependence, hypertension, obesity presented to the ER with right lower quadrant abdominal pain since Friday night, accompanied by nausea, chills, sweats. Last bowel movement Friday. CT of abdomen and pelvis reported acute appendicitis with no definite abscess. Underwent laparoscopic appendectomy reporting microperforation in addition to acute appendicitis. Tolerated procedu re well. Maintained on IV fluid hydration, IV Flagyl. Denies nausea, vomiting. Denies flatus. Pain controlled. Afebrile, T-max 101.4. WBC trending down, 16.9. Preliminary blood cultures reporting no growth after 24 hours. Hemoglobin 14.4, platelets 219, sodium 135, potassium 4, renal function stable. Blood sugars controlled. Denies chest pain, palpitations or shortness of breath. Maintaining O2 sats in the 90s on room air. 10/02/2022 consuming 25-50% of clear liquid diet, tolerating well with no nausea or vomiting. Passing flatus, no bowel movement. Continues on IV fluid hydration. Surgical pain controlled. Denies chest pain, palpitations or shortness of breath. Afebrile, T-max 100, WBC 17.08. Preliminary blood cultures reporting no growth after 24 hours. Sodium 133. Renal function stable.Maintained on Levaquin and Flagyl . Objective - Vital Signs Vital signs: Vital Signs Temp 98 F 10/02/22 07:00 Pulse 92 10/02/22 08:00 Resp 16 10/02/22 08:00 BP 139/85 10/02/22 07:00 Pulse Ox 99 10/02/22 07:00 FiO2 Intake & Output 10/01/22 10/02/22 10/02/22 18:59 06:59 18:59 Intake Total 200 386 Output Total 695 1330 65 Balance -495 -1330 321 Intake: Oral 200 386 Output: Drainage 70 80 65 Lower Abdomen 70 80 65 Urine 625 1250 Other: Voiding Method Urinal Urinal # Voids 1 # Bowel Movements 1 - Exam PHYSICAL EXAM: VITAL SIGNS: As above GENERAL: Alert and oriented 3, Sitting up in chair, no acute distress HEENT: Conjunctivae normal. eyes normal. Oral mucosa moist NECK: Supple, No JVD. CARDIOVASCULAR: S1, S2 regular. No murmur RESPIRATION: Unlabored ,Breath sounds CTA, diminished in the bases. ABDOMEN: Soft, nondistended, status post surgery, dressing clean dry and intact No guarding. KRISTEN serous drainage. LEGS: No edema. no swelling NERVOUS SYSTEM: Cranial N 2-12 grossly normal. No focal deficits. Strength and sensation grossly intact. Skin: Warm and dry, no rash - Labs CBC & Chem 7: 10/02/22 06:07 10/02/22 06:07 Labs: Abnormal Lab Results - Last 24 Hours (Table) 10/01/22 10/02/22 10/02/22 Range/Units 22:00 06:07 06:07 WBC 17.08 H (4.50-10.00) X 10*3/uL Immature Gran # 0.07 H (0.00-0.04) X 10*3/uL Neutrophils # 15.57 H (1.80-7.70) X 10*3/uL Lymphocytes # 0.62 L (0.90-5.00) X 10*3/uL Eosinophils # 0 L (0.04-0.35) X 10*3/uL Sodium 133 L (135-145) mmol/L Carbon Dioxide 19.7 L (20.0-27.5) mmol/L Glucose 129 H (70-110) mg/dL Urine Protein Trace H (Negative) Microbiology - Last 24 Hours (Table) 09/30/22 12:25 Blood Culture - Preliminary Blood No Growth after 24 hours 09/30/22 12:10 Blood Culture - Preliminary Blood No Growth after 24 hours Assessment and Plan Assessment: Acute appendicitis with microperforation Hypertension Former nicotine dependence Morbid obesity, BMI 40.1 Plan: Continue on current medication regime ,monitoring and symptomatic treatment. IV Flagyl and Levaquin. Pain management/Diet advancement as per surgery. Maintain aggressive pulmonary toileting with incentive spirometer reinforced. Increase activity as tolerated. Discharge planning in progress as per primary service. Follow-up with PCP in one week. The impression and plan of care has been dictated as directed. : I performed a history and examination of this patient, discussed the same with the dictator. I agree with the dictator's note ,documented as a scribe. Any additional findings or plans will be noted.
--- NOTE | 2022-10-02 16:01 | P.PN ---
Subjective Progress Note Date: 10/02/22 CHIEF COMPLAINT: Acute appendicitis with microperforation HISTORY OF PRESENT ILLNESS: Patient is postop day #2 status post laparoscopic appendectomy. Patient reports that he is feeling more bloated. He is having some abdominal pain. He did require IV morphine this morning. He is passing gas. He had a low-grade fever of 100 last night. He has been mildly tachycardic. KRISTEN drain with 65 mL serous sanguinous output. WBC is slightly up from 16.9 to 17.08 Hgb 14.2 platelet 228 sodium 133 potassium 4.1 creatinine 0.9 Patient seen and examined with Dr. shoemaker PHYSICAL EXAM: VITAL SIGNS: Reviewed. GENERAL: Well-developed in no acute distress. HEENT: No sclera icterus. Extraocular movements grossly intact. Moist buccal mucosa. Head is atraumatic, normocephalic. ABDOMEN: Soft. Nondistended. Incision is clean dry and intact. KRISTEN drain with cirrhosis and output. NEUROLOGIC: Alert and oriented. Cranial nerves II through XII grossly intact. ASSESSMENT: 1. Acute appendicitis with microperforation PLAN: -Advance diet to full liquid -Toradol added for pain -Patient given 1 L fluid bolus for being dry -Continue antibiotics -Continue IV fluids -Continue pain management -Continue supportive care -Patient can shower today -Anticipate discharge possibly tomorrow -Encouraged patient to ambulate -Encouraged patient to use incentive spirometer -DVT prophylaxis subcu heparin Physician Snow Removing Supervisor note has been reviewed by physician. Signing provider agrees with the documented findings, assessment, and plan of care. Objective - Vital Signs Vital signs: Vital Signs Temp 98 F 10/02/22 14:25 Pulse 79 10/02/22 14:25 Resp 16 10/02/22 14:25 BP 143/84 10/02/22 14:25 Pulse Ox 97 10/02/22 14:25 FiO2 Intake & Output 10/01/22 10/02/22 10/02/22 18:59 06:59 18:59 Intake Total 200 386 Output Total 695 1330 450 Balance -495 -1330 -64 Intake: Oral 200 386 Output: Drainage 70 80 125 Lower Abdomen 70 80 125 Urine 625 1250 325 Other: Voiding Method Urinal Urinal # Voids 1 # Bowel Movements 1 - Labs CBC & Chem 7: 10/02/22 06:07 10/02/22 06:07 Labs: Abnormal Lab Results - Last 24 Hours (Table) 10/01/22 10/02/22 10/02/22 Range/Units 22:00 06:07 06:07 WBC 17.08 H (4.50-10.00) X 10*3/uL Immature Gran # 0.07 H (0.00-0.04) X 10*3/uL Neutrophils # 15.57 H (1.80-7.70) X 10*3/uL Lymphocytes # 0.62 L (0.90-5.00) X 10*3/uL Eosinophils # 0 L (0.04-0.35) X 10*3/uL Sodium 133 L (135-145) mmol/L Carbon Dioxide 19.7 L (20.0-27.5) mmol/L Glucose 129 H (70-110) mg/dL Urine Protein Trace H (Negative) Microbiology - Last 24 Hours (Table) 09/30/22 12:25 Blood Culture - Preliminary Blood No Growth after 48 hours 09/30/22 12:10 Blood Culture - Preliminary Blood No Growth after 48 hours
[2022-10-02] MEDS: KETOROLAC 15 MG/ML 1 ML VIAL IVP SCH (17:14)
[2022-10-03] MEDS: KETOROLAC 15 MG/ML 1 ML VIAL IVP SCH ×3 (01:09→12:28)
[2022-10-03] MEDS: metroNIDAZOLE-NS PMX 500 MG in SALINE 1 100ML.BAG IVPB SCH ×2 (01:09→09:16)
[2022-10-03] MEDS: SODIUM CHLORIDE 0.9% 1,000 ML IV SCH ×2 (02:14→10:35)
[2022-10-03 05:50] LABS: Basophils % (A) 0 %; Eosinophils # (A) 0.2 k/uL (0-0.7); Eosinophils % (A) 2 %; HCT 40.8 % (39.0-53.0); HGB 13.3 gm/dL (13.0-17.5); Lymphocytes # (A) 0.9 k/uL (1.0-4.8); Lymphocytes % (A) 9 %; MCH 29.7 pg (25.0-35.0); MCHC 32.5 g/dL (31.0-37.0); MCV 91.6 fL (80.0-100.0); Mean Platelet Volume 8.4; Monocytes # (A) 0.6 k/uL (0-1.0); Monocytes % (A) 6 %; Neutrophils # (A) 8.4 k/uL (1.3-7.7); Neutrophils % (A) 82 %; Platelet Count 204 k/uL (150-450); RBC 4.46 m/uL (4.30-5.90); RDW 13.4 % (11.5-15.5); WBC 10.3 k/uL (3.8-10.6)
[2022-10-03 06:01] LABS: African American GFR (CKD) >90 (>60 ml/min/1.73 sqM); Anion Gap 4 mmol/L; Blood Urea Nitrogen 15 mg/dL (9-20); Calcium 8.4 mg/dL (8.4-10.2); Carbon Dioxide 26 mmol/L (22-30); Chloride 103 mmol/L (98-107); Glucose 113 mg/dL (74-99); Non-African American GFR(CKD) >90 (>60 ml/min/1.73 sqM); Potassium 3.9 mmol/L (3.5-5.1); Sodium 133 mmol/L (137-145)
[2022-10-03] MEDS: HEPARIN SODIUM,PORCINE/PF 5,000 UNIT/0.5 ML SYRINGE SQ SCH (09:24)
[2022-10-03] MEDS: PANTOPRAZOLE 40 MG/10 ML VIAL IVP SCH (09:25)
[2022-10-03] MEDS: LOSARTAN 50 MG TAB PO SCH (09:25)
[2022-10-03 09:38] VITALS: RESP 17
[2022-10-03] MEDS: LEVOFLOXACIN 500MG-D5W PMX 500 MG in DEXTROSE/WATER 1 100ML.BAG IVPB SCH (10:34)
[2022-10-03 13:39] VITALS: BP 140/88; PULSE 95; TEMP 99
--- NOTE | 2022-10-03 13:56 | P.DS ---
Providers Date of admission: 10/02/22 16:32 Attending physician: Richard Styles Consults: 09/30/22 12:11 Consult Physician Urgent Consulting Provider: Ham Mayorga Consult Reason/Comments: Medical management Do you want consulting provider notified?: Yes Primary care physician: Ham Mayorga MD Hospital Course: Discharge diagnosis 1. Acute appendicitis with microperforation 2. Atelectasis Hospital course This is a 47-year-old male who presented with right lower quadrant abdominal pain 2 days. Computed tomography scan had shown evidence of acute appendicitis. Patient status post laparoscopic appendectomy for acute appendicitis with microperforation. Patient's pain is controlled. He is tolerating diet. He has been up ambulating. He did have a low-grade temp likely related atelectasis. His white count has normalized. Patient will be discharged with oral antibiotics. She is having flatus. He is stable for discharge. Please refer to chart for any further details. Physician Book Trimmer note has been reviewed by physician. Signing provider agrees with the documented findings, assessment, and plan of care. Patient Condition at Discharge: Stable Plan - Discharge Summary New Discharge Prescriptions: New metroNIDAZOLE [Flagyl] 500 mg PO TID #30 tab HYDROcodone/APAP 5-325MG [[place] 5-325] 1 tab PO Q6HR PRN 3 Days #12 tab PRN Reason: Pain Docusate [Colace] 100 mg PO BID #30 capsule Levofloxacin [Levaquin] 500 mg PO DAILY 10 Days #10 tab Ibuprofen [Motrin] 600 mg PO Q8HR PRN #30 tab PRN Reason: Pain Continue Losartan [Cozaar] 50 mg PO BID Discharge Medication List Losartan [Cozaar] 50 mg PO BID 07/08/22 [History] Docusate [Colace] 100 mg PO BID #30 capsule 10/03/22 [Rx] HYDROcodone/APAP 5-325MG [[place] 5-325] 1 tab PO Q6HR PRN 3 Days #12 tab 10/03/22 [Rx] Ibuprofen [Motrin] 600 mg PO Q8HR PRN #30 tab 10/03/22 [Rx] Levofloxacin [Levaquin] 500 mg PO DAILY 10 Days #10 tab 10/03/22 [Rx] metroNIDAZOLE [Flagyl] 500 mg PO TID #30 tab 01/12/23 [Rx] Follow up Appointment(s)/Referral(s): Ham Mayorga MD [Primary Care Provider] - 1 Week Richard Styles MD [STAFF PHYSICIAN] - 1 Week Activity/Diet/Wound Care/Special Instructions: No driving while taking [place] No lifting over 10 pounds Shower daily. No soaking or tub baths for 2 weeks Very light activity until you are reevaluated at your follow up appointment with your surgeon Keep a log of KRISTEN drain output and bring with you to your follow-up appointment Milk/strip drains 2-3 times a day Discharge Disposition: HOME SELF-CARE
--- NOTE | 2022-10-03 18:44 | P.PN ---
Subjective Progress Note Date: 10/03/22 - History of Present Illness As a 47-year-old gentleman with past medical history of former nicotine dependence, hypertension, obesity presented to the ER with right lower quadrant abdominal pain since Friday night, accompanied by nausea, chills, sweats. Last bowel movement Friday. CT of abdomen and pelvis reported acute appendicitis with no definite abscess. Underwent laparoscopic appendectomy reporting microperforation in addition to acute appendicitis. Tolerated procedu re well. Maintained on IV fluid hydration, IV Flagyl. Denies nausea, vomiting. Denies flatus. Pain controlled. Afebrile, T-max 101.4. WBC trending down, 16.9. Preliminary blood cultures reporting no growth after 24 hours. Hemoglobin 14.4, platelets 219, sodium 135, potassium 4, renal function stable. Blood sugars controlled. Denies chest pain, palpitations or shortness of breath. Maintaining O2 sats in the 90s on room air. 10/02/2022 consuming 25-50% of clear liquid diet, tolerating well with no nausea or vomiting. Passing flatus, no bowel movement. Continues on IV fluid hydration. Surgical pain controlled. Denies chest pain, palpitations or shortness of breath. Afebrile, T-max 100, WBC 17.08. Preliminary blood cultures reporting no growth after 24 hours. Sodium 133. Renal function stable.Maintained on Levaquin and Flagyl . 10/03/2022 T-max 100, WBC 10.3. Sitting up in chair, feels significantly better. Reports less pain, controlled. Positive flatus, no bowel movement. Tolerating diet with no nausea ,vomiting. Objective - Vital Signs Vital signs: Vital Signs Temp 98.3 F 10/03/22 07:00 Pulse 88 10/03/22 07:00 Resp 17 10/03/22 07:00 BP 127/80 10/03/22 07:00 Pulse Ox 99 10/03/22 07:24 FiO2 Intake & Output 10/02/22 10/03/22 10/03/22 18:59 06:59 18:59 Intake Total 386 59 Output Total 520 1275 Balance -134 -1275 59 Intake: Oral 386 59 Output: Drainage 195 250 Lower Abdomen 195 250 Urine 325 1025 Other: Voiding Method Urinal Urinal # Voids 1 # Bowel Movements 1 - Exam PHYSICAL EXAM: VITAL SIGNS: As above GENERAL: Alert and oriented 3, Sitting up in chair, no acute distress HEENT: Conjunctivae normal. eyes normal. Oral mucosa moist NECK: Supple, No JVD. CARDIOVASCULAR: S1, S2 regular. No murmur RESPIRATION: Unlabored ,Breath sounds CTA, diminished in the bases. ABDOMEN: Soft, nondistended, status post surgery, dressing clean dry and intact No guarding. KRISTEN serous drainage. LEGS: No edema. no swelling NERVOUS SYSTEM: Cranial N 2-12 grossly normal. No focal deficits. Strength and sensation grossly intact. Skin: Warm and dry, no rash - Labs CBC & Chem 7: 10/03/22 05:14 10/03/22 05:14 Labs: Abnormal Lab Results - Last 24 Hours (Table) 10/03/22 10/03/22 Range/Units 05:14 05:14 Neutrophils # 8.4 H (1.3-7.7) k/uL Lymphocytes # 0.9 L (1.0-4.8) k/uL Sodium 133 L (137-145) mmol/L Glucose 113 H (74-99) mg/dL Microbiology - Last 24 Hours (Table) 09/30/22 12:25 Blood Culture - Preliminary Blood No Growth after 48 hours 09/30/22 12:10 Blood Culture - Preliminary Blood No Growth after 48 hours Assessment and Plan Assessment: Acute appendicitis with microperforation Atelectasis, postop, Spectazole, as per surgery. Hypertension Former nicotine dependence Morbid obesity, BMI 40.1 Plan: Continue on current medication regime ,monitoring and symptomatic treatment. Patient is medically cleared for discharge. Antibiotics/Pain management as per primary. Aggressive pulmonary toileting with incentive spirometer reinforced. Increase activity as tolerated. Discharge planning in progress as per primary service. Follow-up with PCP in one week. The impression and plan of care has been dictated as directed. : I performed a history and examination of this patient, discussed the same with the dictator. I agree with the dictator's note ,documented as a scribe. Any additional findings or plans will be noted.
== END 2022-10-03 14:57 | disposition home or self-care (01) | DRG 339 ==
LOC: EC 09:35 → 6NMEDSUR 12:18 → OBSVTOIN 10-02 16:32 → 6NMEDSUR 10-02 19:29
PROVIDERS: ADMIT Surgery; ATTEND Surgery
PROC: 0DTJ4ZZ Resection of Appendix, Percutaneous Endoscopic Approach (ICD-10-PCS; principal; 2022-09-30 08:30)
DX: K35.32 Acute appendicitis with perforation, localized peritonitis, and gangrene, without abscess (principal); J98.11 Atelectasis; Z68.41 Body mass index [BMI] 40.0-44.9, adult; E66.01 Morbid (severe) obesity due to excess calories; I10 Essential (primary) hypertension; R00.0 Tachycardia, unspecified; Z79.899 Other long term (current) drug therapy; Z88.0 Allergy status to penicillin; Z87.891 Personal history of nicotine dependence; Z28.310 Unvaccinated for COVID-19
CPT/HCPCS: 36415; 74177; 80048; 80053; 81003; 82150; 83605; 83690; 85025; 87040; 88304; 94760; 96361; 96365; 96375; 99285